=== PATIENT | female | born 1990 | race Caucasian/White ===

== ENCOUNTER 2018-05-25 19:47 | Inpatient (IN) | payer BC ==
[2018-05-25] MEDS ORDERED: OXYTOCIN 30 UNITS/LR 500 ML IV (20:30)
[2018-05-25] MEDS ORDERED: METHYLERGONOVINE 0.2 MG INJ IM (20:30)
[2018-05-25] MEDS ORDERED: IBUPROFEN 600 MG TAB PO (20:30)
[2018-05-25] MEDS ORDERED: MINERAL OIL LIGHT 10 ML VIAL TOP (20:30)
[2018-05-25] MEDS ORDERED: LIDOCAINE 1% (MPF) 30 ML INJ INJ (20:30)
[2018-05-25] MEDS ORDERED: CARBOPROST 250 MCG INJ IM (20:30)
[2018-05-25] MEDS ORDERED: LIDOCAINE 0.5% (SDV) 50 ML INJ INJ (20:30)
[2018-05-25] MEDS: LACTATED RINGER'S 1,000 ML IV (22:01)
[2018-05-25 22:04] LABS: ADD MAN DIFF? NO
[2018-05-25 22:06] LABS: BASOPHILS % 0.2 % (0.0-2.0); EOSINOPHILS # 0.1 10^3/ul (0.0-0.5); EOSINOPHILS % 0.6 % (0.0-7.0); HEMATOCRIT 37.5 % (37.0-47.0); HEMOGLOBIN 12.7 g/dl (12.0-16.0); LYMPHOCYTES # 2.8 10^3/ul (0.8-2.9); LYMPHOCYTES % 26.6 % (15.0-51.0); MEAN CORPUSCULAR HEMOGLOBIN 30.5 pg (29.0-33.0); MEAN CORPUSCULAR HGB CONC 33.9 g/dl (32.0-37.0); MEAN CORPUSCULAR VOLUME 89.9 fl (82.0-101.0); MEAN PLATELET VOLUME 10.7 fl (7.4-10.4); MONOCYTE # 0.7 10^3/ul (0.3-0.9); MONOCYTES % 6.3 % (0.0-11.0); NEUTROPHIL # 6.8 10^3/ul (1.6-7.5); PLATELET COUNT 257 10^3/UL (140-415); RED BLOOD COUNT 4.17 10^6/ul (4.20-5.40); RED CELL DISTRIBUTION WIDTH 12.1 % (11.5-14.5)
[2018-05-25 22:06] LABS: WHITE BLOOD COUNT 10.3 10^3/ul (4.8-10.8)
[2018-05-25 22:17] LABS: ADD UMIC NO; UR ASCORBIC ACID NEGATIVE (NEGATIVE); UR BILIRUBIN (Dip) NEGATIVE (NEGATIVE); UR BLOOD (Dip) NEGATIVE (NEGATIVE); UR CLARITY CLEAR (CLEAR); UR COLOR YELLOW (YELLOW); UR GLUCOSE (Dip) NEGATIVE (NEGATIVE); UR KETONES (Dip) NEGATIVE (NEGATIVE); UR LEUKOCYTE ESTERASE (Dip) NEGATIVE Leu/ul (NEGATIVE); UR NITRITE (Dip) NEGATIVE (NEGATIVE); UR TOTAL PROTEIN (Dip) NEGATIVE (NEGATIVE); UR UROBILINOGEN (Dip) NEGATIVE (NEGATIVE)
[2018-05-25 22:22] LABS: ALANINE AMINOTRANSFERASE 18 IU/L (13-69); ALBUMIN 3.8 g/dl (3.3-4.9); ALBUMIN/GLOBULIN RATIO 1.18; ALKALINE PHOSPHATASE 156 IU/L (42-121); ANION GAP 10 (5-13); ASPARTATE AMINO TRANSFERASE 21 IU/L (15-46); BILIRUBIN,INDIRECT 0.7 mg/dl (0-1.1); BILIRUBIN,TOTAL 0.7 mg/dl (0.2-1.3); BLOOD UREA NITROGEN 7 mg/dl (7-20); CALCIUM 9.3 mg/dl (8.4-10.2); CARBON DIOXIDE 21 mmol/L (21-31); CHLORIDE 107 mmol/L (97-110); CREATININE 0.47 mg/dl (0.44-1.00); Estimated GFR > 60 mL/min (>60); GLUCOSE 92 mg/dl (70-220); POTASSIUM 3.9 mmol/L (3.5-5.1); SODIUM 138 mmol/L (135-144); URIC ACID 3.5 mg/dl (3.1-7.9)
[2018-05-25 22:39] LABS: RAPID PLASMA REAGIN NONREACTIVE (NR)
[2018-05-25 23:04] LABS: INR 0.93; PROTIME 12.5 Sec (11.9-14.9)
[2018-05-25 23:05] LABS: PARTIAL THROMBOPLASTIN TIME 28.5 Sec (23.0-35.0)
[2018-05-26] MEDS: MISOPROSTOL 50 MCG CAPSULE PO ×5 (02:25→22:41)
[2018-05-26] MEDS: LACTATED RINGER'S 1,000 ML IV ×3 (03:04→18:35)
[2018-05-27] MEDS: LACTATED RINGER'S 1,000 ML IV ×4 (02:53→19:31)
[2018-05-27] MEDS: MISOPROSTOL 50 MCG CAPSULE PO (04:19)
[2018-05-27] MEDS: OXYTOCIN 30 UNITS/LR 500 ML IV (12:07)
[2018-05-27] MEDS: BUTORPHANOL 2 MG INJ IV (14:43)
[2018-05-27] MEDS ORDERED: FENTAnyl 2MCG/ML-ROPIV 0.2% 100 ML (18:16)
[2018-05-27] MEDS ORDERED: NALOXONE (0.4 MG/ML) INJ IV (18:30)
[2018-05-27] MEDS: AMPICILLIN 2 GM/NS (PMX) 100 ML IVPB (22:03)
[2018-05-27] MEDS: FENTAnyl 2MCG/ML-ROPIV 0.2% 100 ML BAG EPI (23:37)
[2018-05-28] MEDS: AMPICILLIN 1 GM/NS (PMX) 50 ML IVPB ×3 (02:10→10:00)
[2018-05-28] MEDS: LACTATED RINGER'S 1,000 ML IV (03:50)
[2018-05-28] MEDS: FENTAnyl 2MCG/ML-ROPIV 0.2% 100 ML BAG EPI (09:22)
[2018-05-28] MEDS ORDERED: LIDOCAINE 1% (MPF) 30 ML INJ (11:07)
[2018-05-28] MEDS: MISOPROSTOL 200 MCG TAB PR (12:39)
[2018-05-28] MEDS: OXYTOCIN 30 UNITS/LR 500 ML IV ×2 (12:53→15:07)
[2018-05-28] MEDS: DEXTROSE 5%-LR 1,000 ML IV ×2 (13:35→21:35)
[2018-05-28] MEDS ORDERED: MISOPROSTOL 200 MCG TAB PR (14:00)
[2018-05-28] MEDS ORDERED: ZOLPIDEM 5 MG TAB PO (14:00)
[2018-05-28] MEDS ORDERED: MAGNESIUM HYDROXIDE 30ML CUP PO (14:00)
[2018-05-28] MEDS ORDERED: ONDANSETRON 4 MG INJ IV (14:00)
[2018-05-28] MEDS ORDERED: DIBUCAINE 1% 30 GM OINT TOP (14:00)
[2018-05-28] MEDS ORDERED: METHYLERGONOVINE 0.2 MG INJ IM (14:00)
[2018-05-28] MEDS ORDERED: DIPHENHYDRAMINE 50 MG INJ IV (14:00)
[2018-05-28] MEDS ORDERED: OXYTOCIN 30 UNITS/LR 500 ML IV (14:00)
[2018-05-28] MEDS ORDERED: SENNA/DOCUSATE NA (8.6MG/50MG) TAB PO (14:00)
[2018-05-28] MEDS ORDERED: ACETAMINOPHEN 325 MG TAB PO (14:00)
[2018-05-28] MEDS ORDERED: CARBOPROST 250 MCG INJ IM (14:00)
[2018-05-28] MEDS: MAGNESIUM HYDROXIDE 30ML CUP PO (14:18)
[2018-05-28] MEDS: OXYCODONE/ASPIRIN (4.88/325) TAB PO (15:47)
[2018-05-28] MEDS: LANOLIN 7 GM TUBE TOP (15:48)
[2018-05-28] MEDS: WITCH HAZEL/GLYCERIN PAD PR (15:48)
[2018-05-28] MEDS: BENZOCAINE 20% 56 ML SPRAY TOP (15:49)
[2018-05-28] MEDS: IBUPROFEN 600 MG TAB PO ×2 (18:03→23:39)
[2018-05-28] MEDS: LACTATED RINGER'S 1,000 ML IV* ×2 (19:16→21:35)
[2018-05-29] MEDS: DEXTROSE 5%-LR 1,000 ML IV ×3 (05:35→21:35)
[2018-05-29] MEDS: LACTATED RINGER'S 1,000 ML IV* ×3 (05:35→21:35)
[2018-05-29] MEDS: IBUPROFEN 600 MG TAB PO ×3 (06:14→18:19)
[2018-05-29 07:41] LABS: ADD MAN DIFF? NO
[2018-05-29 07:44] LABS: WHITE BLOOD COUNT 19.3 10^3/ul (4.8-10.8)
[2018-05-29 07:44] LABS: BASOPHIL # 0.1 10^3/ul (0.0-0.1); BASOPHILS % 0.3 % (0.0-2.0); EOSINOPHILS # 0.1 10^3/ul (0.0-0.5); EOSINOPHILS % 0.7 % (0.0-7.0); HEMATOCRIT 32.7 % (37.0-47.0); HEMOGLOBIN 10.9 g/dl (12.0-16.0); LYMPHOCYTES # 3.9 10^3/ul (0.8-2.9); LYMPHOCYTES % 20.1 % (15.0-51.0); MEAN CORPUSCULAR HEMOGLOBIN 30.4 pg (29.0-33.0); MEAN CORPUSCULAR HGB CONC 33.3 g/dl (32.0-37.0); MEAN CORPUSCULAR VOLUME 91.3 fl (82.0-101.0); MEAN PLATELET VOLUME 10.9 fl (7.4-10.4); MONOCYTE # 1.4 10^3/ul (0.3-0.9); NEUTROPHIL # 13.8 10^3/ul (1.6-7.5); NEUTROPHILS % 71.4 % (39.0-77.0); PLATELET COUNT 221 10^3/UL (140-415); RED BLOOD COUNT 3.58 10^6/ul (4.20-5.40); RED CELL DISTRIBUTION WIDTH 12.4 % (11.5-14.5)
[2018-05-29] MEDS ORDERED: INFLUENZA VIRUS VACCINE 0.5 ML (DISPENSING) IM* (10:00)
[2018-05-30] MEDS: IBUPROFEN 600 MG TAB PO ×3 (00:11→11:40)
[2018-05-30] MEDS: LACTATED RINGER'S 1,000 ML IV* (05:35)
[2018-05-30] MEDS: DEXTROSE 5%-LR 1,000 ML IV (05:35)
[2018-05-30] MEDS: MEASLES,MUMPS,RUBELLA VACCINE INJ SC* (09:00)
[2018-05-30] MEDS: DIPHTH/TET/ACEL PERTUSS (ADULT) 0.5 ML VIAL IM* (10:15)
== END 2018-05-30 14:30 | disposition home or self-care (01) | DRG 807 ==
LOC: L-D 19:47 → PP1 05-28 15:27 → L-D 05-26 18:00
PROC: 10E0XZZ Delivery of Products of Conception, External Approach (ICD-10-PCS; principal; 2018-05-28)
PROC: 0W8NXZZ Division of Female Perineum, External Approach (ICD-10-PCS; 2018-05-28)
DX: O48.0 Post-term pregnancy (principal); Z37.0 Single live birth; Z3A.40 40 weeks gestation of pregnancy; Z23 Encounter for immunization
CPT/HCPCS: 62319; 76815; 76818; 80053; 81003; 84560; 85025; 85384; 85610; 85730; 86592; 86850; 86900; 86901; 90686; 90715